=== PATIENT | female | born 1965 | race African-American/Black ===

== ENCOUNTER 2024-08-21 14:05 | Inpatient (IN) | payer OTHER ==
[~2024-08-21] VITALS: Ht 177.8 cm; Wt 97.1 kg
[2024-08-21 15:51] LABS: BASOPHILS % 0.1 % (0.0-2.0); DIFFERENTIAL COMMENT 0; HEMOGLOBIN. 11.6 g/dL (12.0-16.0); LYMPHOCYTES % 14.5 % (20.0-50.0); MEAN CORPUSCULAR HEMOGLOBIN 36.2 pg (28.0-32.0); MEAN CORPUSCULAR HGB CONC 34.2 g/dL (31.0-37.0); MEAN CORPUSCULAR VOLUME 105.7 fL (81.0-99.0); MONOCYTES % 8.5 % (2.0-8.0); NEUTROPHILS % 76.9 % (40.0-76.0); PLATELET 184 x1000/uL (130-400); RED BLOOD CELL COUNT 3.22 mill/uL (4.2-5.4); RED CELL DISTRIBUTION WIDTH 13.8 % (11.6-14.6); WHITE BLOOD COUNT 5.6 x1000/uL (4.5-11.0)
[2024-08-21 15:58] LABS: POTASSIUM 4.7 mEq/L (3.5-5.1)
[2024-08-21 16:00] LABS: CALCIUM 9.5 mg/dL (8.7-10.4); INR 1.1; PROTHROMBIN TIME 11.9 sec (9.6-11.0)
[2024-08-21 16:04] LABS: CREATININE 1.3 mg/dL (0.6-1.0)
[2024-08-21] MEDS: MORPHINE SULFATE 4 MG/ML INJ (FOR IV/IM USE) IV STA (16:09)
[2024-08-21] MEDS: ONDANSETRON HCL 4MG/2ML INJ IV STA (16:09)
[2024-08-21 16:33] LABS: CLARITY URINE CLOUDY (CLEAR); COLOR URINE YELLOW (YELLOW); GLUCOSE URINE NEGATIVE (NEGATIVE); KETONES URINE NEGATIVE (NEGATIVE); LEUKOCYTE ESTERASE URINE 2+ (NEGATIVE); NITRITE URINE NEGATIVE (NEGATIVE); OCCULT BLOOD URINE 2+ (NEGATIVE); PROTEIN URINE 1+ (NEGATIVE); SPECIFIC GRAVITY URINE 1.021 (1.005-1.030)
[2024-08-21 16:52] LABS: BACTERIA URINE TRACE; SQUAMOUS EPITHELIAL CELL URINE FEW /lpf (RARE/1+)
[2024-08-21] MEDS: OXYCODONE HCL/ACETAMINOPHEN 5/325MG TABLET PO STA (17:22)
[2024-08-21 19:16] VITALS: BP 115/65; PULSE 90; RESP 18; TEMP 36.4; O2SAT 100
[2024-08-22] MEDS ORDERED: ACETAMINOPHEN 325MG TABLET PO PRN
[2024-08-22] MEDS ORDERED: ZOLPIDEM TARTRATE 5MG TABLET PO PRN
[2024-08-22] MEDS ORDERED: MAGNESIUM/ALUMINUM HYDROXIDE/SIMETHICONE 30ML UDC PO PRN
[2024-08-22] MEDS: SODIUM CHLORIDE 0.9% 1,000 ML IV SCH
[2024-08-22] MEDS ORDERED: CLONIDINE 0.1MG TABLET PO PRN
[2024-08-22] MEDS ORDERED: IPRATROPIUM/ALBUTEROL 0.5-3(2.5)MG/3ML NEB NEB PRN
[2024-08-22] MEDS ORDERED: METH-774 PO (00:02)
[2024-08-22] MEDS ORDERED: PREG25CA19 PO (00:02)
[2024-08-22] MEDS ORDERED: DIAZ5TAB4 PO (00:02)
[2024-08-22] MEDS ORDERED: METO100T16 (00:02)
[2024-08-22] MEDS ORDERED: DIAZEPAM 5 MG TABLET PO PRN (00:15)
[2024-08-22] MEDS: METOPROLOL TARTRATE 100MG TABLET PO SCH (02:28)
[2024-08-22] MEDS: CEFTRIAXONE 1GM/50ML 50 ML IV NR (02:29)
[2024-08-22 07:06] LABS: BASOPHILS % 0.2 % (0.0-2.0); DIFFERENTIAL COMMENT 0; EOSINOPHILS % 0.5 % (0.0-5.0); HEMATOCRIT. 35.1 % (36.0-48.0); LYMPHOCYTES % 45.3 % (20.0-50.0); MEAN CORPUSCULAR HEMOGLOBIN 35.5 pg (28.0-32.0); MEAN CORPUSCULAR HGB CONC 34.1 g/dL (31.0-37.0); MEAN CORPUSCULAR VOLUME 104.1 fL (81.0-99.0); MEAN PLATELET VOLUME 8.1 fl (7.4-10.4); MONOCYTES % 5.2 % (2.0-8.0); NEUTROPHILS % 48.8 % (40.0-76.0); PLATELET 175 x1000/uL (130-400); RED BLOOD CELL COUNT 3.37 mill/uL (4.2-5.4); RED CELL DISTRIBUTION WIDTH 13.9 % (11.6-14.6); WHITE BLOOD COUNT 3.6 x1000/uL (4.5-11.0)
[2024-08-22 07:22] LABS: CHLORIDE 102 mEq/L (98-107); POTASSIUM 3.8 mEq/L (3.5-5.1); SODIUM 140 mEq/L (136-145)
[2024-08-22 07:23] LABS: CALCIUM 9.6 mg/dL (8.7-10.4); CARBON DIOXIDE 30 mEq/L (21-32)
[2024-08-22 07:28] LABS: CREATININE 0.9 mg/dL (0.6-1.0); GLUCOSE 80 mg/dL (70-105); UREA NITROGEN BLOOD 19 mg/dL (9-23)
[2024-08-22 10:46] LABS: *AMPHETAMINES SCREEN URINE NEGATIVE (NEGATIVE); *BARBITURATES SCREEN URINE NEGATIVE (NEGATIVE); *BENZODIAZEPINES SCREEN URINE PRESUMPTIVE POSITIVE (NEGATIVE)
[2024-08-22 10:47] LABS: *COCAINE SCREEN URINE NEGATIVE (NEGATIVE); CANNABINOID URINE SCREEN PRESUMPTIVE POSITIVE (NEGATIVE); ECSTASY MDMA SCREEN URINE NEGATIVE (NEGATIVE); METHADONE URINE SCREEN NEGATIVE (NEGATIVE); OPIATES URINE SCREEN NEGATIVE (NEGATIVE); PHENCYCLIDINE URINE SCREEN NEGATIVE (NEGATIVE)
[2024-08-22] MEDS: ENOXAPARIN 40MG/0.4ML SYR SUBCUT SCH (12:46)
[2024-08-22] MEDS: HYDROCODONE/ACETAMINOPHEN 5/325MG TABLET PO PRN (12:47)
[2024-08-22] MEDS: PANTOPRAZOLE SODIUM 40 MG/VIAL IV SCH (12:47)
[2024-08-22] MEDS: LIDOCAINE 5% PATCH TOP SCH (12:49)
[2024-08-22] MEDS: ONDANSETRON HCL 4MG/2ML INJ IV PRN (12:56)
[2024-08-22 20:00] VITALS: BP 121/64; PULSE 72; RESP 18; TEMP 36.1; O2SAT 97
[2024-08-22] MEDS: PREGABALIN 25MG CAPSULE PO SCH (21:00)
[2024-08-22] MEDS: CEFTRIAXONE 1GM/50ML 50ML IV SCH (21:29)
[2024-08-22] MEDS: METHOCARBAMOL 750MG TABLET PO PRN (21:30)
[2024-08-22] MEDS: MORPHINE SULFATE 2 MG/ML INJ (NOT FOR IM USE) IV PRN (21:30)
[2024-08-23] VITALS (7 sets, daily range): BP systolic 130–148; BP diastolic 56–85; PULSE 64–72; RESP 18–20; TEMP 36.3–36.9; O2SAT 97–98
[2024-08-23 12:34] LABS: BASOPHILS % 0.6 % (0.0-2.0); DIFFERENTIAL COMMENT 0; EOSINOPHILS % 1.4 % (0.0-5.0); HEMATOCRIT. 31.5 % (36.0-48.0); HEMOGLOBIN. 10.6 g/dL (12.0-16.0); LYMPHOCYTES % 35.9 % (20.0-50.0); MEAN CORPUSCULAR HEMOGLOBIN 35.2 pg (28.0-32.0); MEAN CORPUSCULAR HGB CONC 33.7 g/dL (31.0-37.0); MEAN CORPUSCULAR VOLUME 104.5 fL (81.0-99.0); MEAN PLATELET VOLUME 8.6 fl (7.4-10.4); MONOCYTES % 12.1 % (2.0-8.0); PLATELET 149 x1000/uL (130-400); RED BLOOD CELL COUNT 3.01 mill/uL (4.2-5.4); RED CELL DISTRIBUTION WIDTH 13.5 % (11.6-14.6)
[2024-08-23 12:36] LABS: CHLORIDE 101 mEq/L (98-107); POTASSIUM 3.8 mEq/L (3.5-5.1); SODIUM 140 mEq/L (136-145)
[2024-08-23 12:37] LABS: CALCIUM 9.4 mg/dL (8.7-10.4); CARBON DIOXIDE 32 mEq/L (21-32)
[2024-08-23 12:42] LABS: CREATININE 0.7 mg/dL (0.6-1.0); GLUCOSE 83 mg/dL (70-105); UREA NITROGEN BLOOD 10 mg/dL (9-23)
[2024-08-24] VITALS: BP 130/71; PULSE 78; RESP 19; TEMP 36.5; O2SAT 99
[2024-08-24 04:00] VITALS: BP 152/89; PULSE 76; RESP 19; TEMP 36.2; O2SAT 98
[2024-08-24 08:00] VITALS: BP 132/73; PULSE 72; RESP 20; TEMP 36.2; O2SAT 99
[2024-08-24 08:12] LABS: CALCIUM 9.1 mg/dL (8.7-10.4); CARBON DIOXIDE 30 mEq/L (21-32); CHLORIDE 103 mEq/L (98-107); POTASSIUM 3.8 mEq/L (3.5-5.1); SODIUM 141 mEq/L (136-145)
[2024-08-24 08:16] LABS: BASOPHILS % 0.5 % (0.0-2.0); DIFFERENTIAL COMMENT 0; EOSINOPHILS % 0.9 % (0.0-5.0); HEMATOCRIT. 30.1 % (36.0-48.0); HEMOGLOBIN. 10.5 g/dL (12.0-16.0); LYMPHOCYTES % 33.6 % (20.0-50.0); MEAN CORPUSCULAR HEMOGLOBIN 37.6 pg (28.0-32.0); MEAN CORPUSCULAR VOLUME 107.2 fL (81.0-99.0); MEAN PLATELET VOLUME 8.6 fl (7.4-10.4); MONOCYTES % 13.8 % (2.0-8.0); NEUTROPHILS % 51.2 % (40.0-76.0); PLATELET 156 x1000/uL (130-400); RED BLOOD CELL COUNT 2.81 mill/uL (4.2-5.4); RED CELL DISTRIBUTION WIDTH 13.7 % (11.6-14.6); WHITE BLOOD COUNT 3.2 x1000/uL (4.5-11.0)
[2024-08-24 08:18] LABS: CREATININE 0.8 mg/dL (0.6-1.0); GLUCOSE 93 mg/dL (70-105); UREA NITROGEN BLOOD 11 mg/dL (9-23)
[2024-08-24 08:26] LABS: VITAMIN B12 SERUM 1434 pg/mL (211-911)
[2024-08-24 16:57] VITALS: BP 131/81; PULSE 68; TEMP 98.3; O2SAT 98
[2024-08-24 17:37] VITALS: BP 125/76; PULSE 83
== END 2024-08-24 17:54 | disposition home or self-care (01) | DRG 690 ==
LOC: ER 14:05 → 7EST 17:16 → EDBEDREQ 17:18
PROVIDERS: ADMIT Internal Medicine; ATTEND Internal Medicine
DX: N39.0 Urinary tract infection, site not specified (principal); I10 Essential (primary) hypertension; E11.9 Type 2 diabetes mellitus without complications; Z96.642 Presence of left artificial hip joint; Z98.84 Bariatric surgery status; Z79.899 Other long term (current) drug therapy; Z98.1 Arthrodesis status
CPT/HCPCS: 36415; 72148; 73502; 73630; 80048; 80305; 81003; 82607; 82962; 85025; 93880; 93970; 99285; J0696; J1650; J2270; J2405; J2470; J7030

== ENCOUNTER 2025-05-01 16:02 | Inpatient (IN) | payer OTHER, MEDICAID ==
[~2025-05-01] VITALS: Ht 170.2 cm; Wt 77.1 kg
[~2025-05-01 16:02] MED LIST: DIAZ5TAB4 PO; METH-774 PO; METO100T16
[2025-05-01 16:04] VITALS: O2SAT 99
[2025-05-01] MEDS ORDERED: KETOROLAC 15MG/ML VIAL IV ONE (16:15)
[2025-05-01 16:49] LABS: BASOPHILS % 0.6 % (0.0-2.0); EOSINOPHILS % 0.2 % (0.0-5.0); HEMATOCRIT. 34.2 % (36.0-48.0); HEMOGLOBIN. 11.6 g/dL (12.0-16.0); LYMPHOCYTES % 32.3 % (20.0-50.0); MEAN PLATELET VOLUME 7.3 fl (7.4-10.4); MONOCYTES % 5.4 % (2.0-8.0); NEUTROPHILS % 61.5 % (40.0-76.0); PLATELET 289 x1000/uL (130-400); RED BLOOD CELL COUNT 3.22 mill/uL (4.2-5.4); RED CELL DISTRIBUTION WIDTH 16.3 % (11.6-14.6)
[2025-05-01 17:01] LABS: CREATININE 0.9 mg/dL (0.6-1.0); INR 1.1
[2025-05-01 17:02] LABS: TROPONIN I HIGH SENSITIVITY 8 ng/L (3.0-34); UREA NITROGEN BLOOD 6 mg/dL (9-23)
[2025-05-01 17:03] LABS: ASPARTATE AMINOTRANSFERASE 174 IU/L (<34)
[2025-05-01 17:04] LABS: BILIRUBIN DIRECT 0.4 mg/dL (<=3.0); BILIRUBIN TOTAL 1.0 mg/dL (0.1-1.0); PROTEIN TOTAL 7.1 g/dL (6.0-8.3)
[2025-05-01] MEDS: PIPERACILLIN/TAZO 3.375G/50ML 50 ML IV ONE (17:49)
[2025-05-01] MEDS: SODIUM CHLORIDE 0.9% (SEPSIS BOLUS) IV ONE (17:51)
[2025-05-01] MEDS: VANCOMYCIN 1G PREMIX 200 ML IV ONE (19:34)
[2025-05-01] MEDS: KETOROLAC 15MG/ML VIAL IV NR (19:36)
[2025-05-02 00:30] VITALS: BP 165/100; PULSE 102; RESP 20; TEMP 36.696
[2025-05-02] MEDS ORDERED: ACETAMINOPHEN 325MG TABLET PO PRN (00:45)
[2025-05-02] MEDS: SODIUM CHLORIDE 0.9% 1,000 ML IV SCH (01:48)
[2025-05-02] MEDS: KETOROLAC 30MG/ML VIAL IV PRN (01:53)
[2025-05-02] MEDS ORDERED: HYDRALAZINE 10 MG in SODIUM CHLORIDE 0.9% 49.5 ML IV PRN (03:00)
[2025-05-02 04:00] VITALS: BP 143/68; PULSE 112; RESP 18; TEMP 36.4; O2SAT 98
[2025-05-02] MEDS: PANTOPRAZOLE 40MG DR TABLET PO SCH (06:28)
[2025-05-02] MEDS: CEFTRIAXONE 1GM/50ML 50 ML IV SCH (06:28)
[2025-05-02 08:00] VITALS: BP 168/72; PULSE 93; RESP 17; TEMP 37.1; O2SAT 100
[2025-05-02 08:57] LABS: CLARITY URINE CLEAR (CLEAR); COLOR URINE YELLOW (YELLOW); GLUCOSE URINE NEGATIVE (NEGATIVE); KETONES URINE TRACE (NEGATIVE); LEUKOCYTE ESTERASE URINE NEGATIVE (NEGATIVE); NITRITE URINE NEGATIVE (NEGATIVE); OCCULT BLOOD URINE NEGATIVE (NEGATIVE); PH URINE 5.5 (4.5-8.0); PROTEIN URINE NEGATIVE (NEGATIVE); SPECIFIC GRAVITY URINE 1.016 (1.005-1.030); UROBILINOGEN URINE 0.2 E.U./dL (0.2-1.0)
[2025-05-02 09:15] LABS: *AMPHETAMINES SCREEN URINE NEGATIVE (NEGATIVE); *BARBITURATES SCREEN URINE NEGATIVE (NEGATIVE); *BENZODIAZEPINES SCREEN URINE PRESUMPTIVE POSITIVE (NEGATIVE); *COCAINE SCREEN URINE NEGATIVE (NEGATIVE); CANNABINOID URINE SCREEN NEGATIVE (NEGATIVE); ECSTASY MDMA SCREEN URINE NEGATIVE (NEGATIVE); METHADONE URINE SCREEN NEGATIVE (NEGATIVE); OPIATES URINE SCREEN NEGATIVE (NEGATIVE); PHENCYCLIDINE URINE SCREEN NEGATIVE (NEGATIVE)
[2025-05-02] MEDS: ENOXAPARIN 40MG/0.4ML SYR SUBCUT SCH (10:24)
[2025-05-02] MEDS: PREGABALIN 25MG CAPSULE PO SCH (10:25)
[2025-05-02] MEDS: LISINOPRIL 20MG TABLET PO SCH ×2 (10:26→22:07)
[2025-05-02] MEDS: METOPROLOL TARTRATE 100MG TABLET PO SCH (10:26)
[2025-05-02 12:00] VITALS: BP 154/73; PULSE 82; RESP 19; TEMP 36.5; O2SAT 100
[2025-05-02] MEDS ORDERED: NALOXONE HCL 0.4MG/ML VIAL IV PRN (13:00)
[2025-05-02] MEDS: DIAZEPAM 2 MG TABLET PO PRN (13:50)
[2025-05-02 16:00] VITALS: BP 142/73; PULSE 87; RESP 17; TEMP 36.6; O2SAT 100
[2025-05-02 20:00] VITALS: BP 127/66; PULSE 85; RESP 18; TEMP 36.5; O2SAT 100
[2025-05-02] MEDS: PREGABALIN 50 MG CAPSULE PO SCH (22:04)
[2025-05-02] MEDS: TRAMADOL 50MG TABLET PO PRN (22:06)
[2025-05-03] MEDS: ONDANSETRON HCL 4MG/2ML INJ IV PRN (02:22)
[2025-05-03 06:50] LABS: BASOPHILS % 0.4 % (0.0-2.0); EOSINOPHILS % 1.7 % (0.0-5.0); HEMATOCRIT. 29.7 % (36.0-48.0); HEMOGLOBIN. 9.8 g/dL (12.0-16.0); LYMPHOCYTES % 40.8 % (20.0-50.0); MEAN PLATELET VOLUME 8.5 fl (7.4-10.4); MONOCYTES % 4.4 % (2.0-8.0); NEUTROPHILS % 52.7 % (40.0-76.0); PLATELET 155 x1000/uL (130-400); RED BLOOD CELL COUNT 2.75 mill/uL (4.2-5.4); RED CELL DISTRIBUTION WIDTH 15.7 % (11.6-14.6)
[2025-05-03 07:24] LABS: CREATININE 0.9 mg/dL (0.6-1.0)
[2025-05-03 07:26] LABS: UREA NITROGEN BLOOD 5 mg/dL (9-23)
[2025-05-03 07:28] LABS: PHOSPHORUS 2.5 mg/dL (2.5-4.9)
[2025-05-03 08:30] VITALS: BP 122/82; PULSE 84; RESP 18; TEMP 36.3; O2SAT 99
[2025-05-03 09:15] VITALS: BP 132/82; PULSE 84; RESP 18; TEMP 36.3; O2SAT 99
[2025-05-03] MEDS: MAGNESIUM 4 G PREMIX 100 ML IV SCH (11:07)
[2025-05-03 12:00] VITALS: BP 102/61; PULSE 76; RESP 18; TEMP 36.4; O2SAT 98
[2025-05-03] MEDS ORDERED: MECLIZINE 25MG TABLET PO PRN (15:30)
[2025-05-03 16:00] VITALS: BP 110/64; PULSE 88; RESP 18; TEMP 36.4; O2SAT 98
[2025-05-03 17:24] VITALS: BP 106/64; PULSE 81; RESP 20; TEMP 36.6; O2SAT 99
[2025-05-03 20:00] VITALS: BP 141/75; PULSE 70; RESP 18; TEMP 36.5; O2SAT 99
[2025-05-04] VITALS: BP 159/76; PULSE 68; RESP 18; TEMP 36.3; O2SAT 99
[2025-05-04] MEDS: ACETAMINOPHEN 325MG TABLET PO PRN (01:47)
[2025-05-04 04:00] VITALS: BP 120/72; PULSE 64; RESP 18; TEMP 36.1; O2SAT 99
[2025-05-04 08:00] VITALS: BP 161/74; PULSE 63; RESP 18; TEMP 36.5; O2SAT 98
[2025-05-04 12:00] VITALS: BP_SYST 134; BP_SYST 136; BP_DIAS 70; PULSE 65; PULSE 83; RESP 18; RESP 19; TEMP 36.4; TEMP 36.6; O2SAT 98
[2025-05-04 16:00] VITALS: BP_SYST 130; BP_SYST 140; BP_DIAS 67; BP_DIAS 71; PULSE 65; PULSE 76; RESP 19; TEMP 36.6; O2SAT 98
[2025-05-04] MEDS: MECLIZINE 25MG TABLET PO SCH (18:15)
[2025-05-04 20:00] VITALS: BP 122/80; PULSE 84; RESP 18; TEMP 36.2; O2SAT 99
[2025-05-05] VITALS: BP 150/74; PULSE 70; RESP 18; TEMP 36.4; O2SAT 99
[2025-05-05 04:00] VITALS: BP 142/81; PULSE 67; RESP 18; TEMP 36.3; O2SAT 99
[2025-05-05 12:00] VITALS: BP 139/65; PULSE 74; RESP 18; TEMP 36.3; O2SAT 99
[2025-05-05] MEDS: CYCLOBENZAPRINE 10MG TABLET PO PRN (12:00)
[2025-05-05 16:00] VITALS: BP 138/88; PULSE 80; RESP 17; TEMP 36.3; O2SAT 100
[2025-05-05] MEDS ORDERED: CLONIDINE 0.2MG TABLET PO PRN (16:45)
[2025-05-05 20:00] VITALS: BP 130/61; PULSE 93; RESP 18; TEMP 36.8; O2SAT 99
[2025-05-05] MEDS: KETOROLAC 10MG TABLET PO PRN (22:35)
[2025-05-06] VITALS: BP 158/90; PULSE 79; RESP 18; TEMP 36.7; O2SAT 98
[2025-05-06 08:00] VITALS: BP 153/84; PULSE 89; RESP 18; TEMP 36.7; O2SAT 99
[2025-05-06] MEDS ORDERED: LISI20TA31 PO (12:06)
[2025-05-06] MEDS ORDERED: METO100T16 PO (12:06)
[2025-05-06] MEDS ORDERED: PREG50CA PO (12:06)
[2025-05-06] MEDS ORDERED: CYCL10TA21 PO (12:06)
[2025-05-06] MEDS ORDERED: MECL-299 PO (12:06)
[2025-05-06] MEDS ORDERED: KETO10TA2 PO (12:06)
[2025-05-06 15:33] VITALS: BP 127/72; PULSE 79; RESP 18; TEMP 98.2
== END 2025-05-06 16:13 | disposition home or self-care (01) | DRG 690 ==
LOC: ER 16:02 → EDBEDREQSVC 18:47 → EDBEDREQTM 18:47 → EDBEDREQ 18:48 → ENRESERV 23:56 → 4WST 05-02 00:29
PROVIDERS: ADMIT Internal Medicine; ATTEND Internal Medicine
DX: N39.0 Urinary tract infection, site not specified (principal); E11.9 Type 2 diabetes mellitus without complications; I10 Essential (primary) hypertension; E83.42 Hypomagnesemia; F41.9 Anxiety disorder, unspecified; G89.29 Other chronic pain; M54.50 Low back pain, unspecified; R29.6 Repeated falls; S00.81XA Abrasion of other part of head, initial encounter; X58.XXXA Exposure to other specified factors, initial encounter; Y93.89 Activity, other specified; Y92.89 Other specified places as the place of occurrence of the external cause; Y99.8 Other external cause status; Z79.4 Long term (current) use of insulin; Z98.84 Bariatric surgery status
CPT/HCPCS: 36415; 71045; 74176; 80048; 80076; 80305; 81003; 83605; 83735; 83880; 84100; 84145; 84484; 85025; 93005; 96361; 96365; 97116; 97162; 97530; 99285; A4606; J0696; J1650; J1885; J2405; J2543; J3373; J3475; J7030; J8597